=== PATIENT | female | born 1985 | race Caucasian/White ===

== ENCOUNTER 2017-04-06 08:46 | Emergency (ER) | payer BC, OTHER ==
[~2017-04-06] VITALS: Ht 170.2 cm; Wt 56.7 kg
[2017-04-06 08:48] VITALS: Ht 170.2 cm; Wt 56.7 kg
[2017-04-06] MEDS ORDERED: FAMOTIDINE 20 MG INJ IV STA (09:07)
[2017-04-06] MEDS ORDERED: SOD CHLORIDE 0.9% 1,000 ML IV STA (09:07)
[2017-04-06] MEDS ORDERED: ONDANSETRON 4 MG INJ IV STA (09:07)
[2017-04-06] MEDS ORDERED: morphine 4 MG/ML VIAL IV STA (09:07)
--- NOTE | 2017-04-06 09:16 | ERD ---
ER Documentation Chief Complaint Chief Complaint ABD PAIN, ONSET 1 DAY, HOSPITAL VISIT SEVERAL DAYS AGO FOR SAME S/S HPI This is a 31-year-old female who presents emergency department today complaining of on abdominal pain that started earlier today. Patient states that she has had pain in her stomach "her whole life and was told she has a malfunctioning got ". States that her GI specialist is Dr. Luna at [facility] and was told to be on a strict diet. States she has had an endoscopy and colonoscopy this past summer and nothing was found. States that was done when he took her gallbladder out. Denies any vomiting at this time but states that she has Unadilla at home and cannot take that because whenever she takes oral medication she throws up. States she was seen at a hospital 2 days ago at [facility] for the same problem. States that she is in this area visiting her mother. States that she occasionally smokes marijuana. Denies any dysuria, fevers or chills ROS All systems reviewed and are negative except as per history of present illness. Medications Home Meds Active Scripts Dicyclomine Hcl* (Bentyl*) 10 Mg Capsule, 10 MG PO QID, #30 CAP Prov:ROLO QUINTANILLA PA-C 04/06/17 Electrolyte,Oral (Pedialyte) 1,000 Ml Solution, 100 ML PO Q6 Y for VOMITTING, # 1000 ML Prov:ROLO QUINTANILLA PA-C 04/06/17 Ondansetron Hcl* (Zofran*) 4 Mg Tablet, 4 MG PO Q6H for NAUSEA AND/OR VOMITING, #30 TAB Prov:ROLO QUINTANILLA PA-C 04/06/17 Allergies Allergies: Coded Allergies: No Known Allergy (Unverified , 04/06/17) Physical Exam Vitals Vital Signs Date Time Temp Pulse Resp B/P Pulse Ox O2 Delivery O2 Flow Rate FiO2 04/06/17 13:05 99.1 86 18 136/64 98 Room Air 04/06/17 08:48 99.2 93 17 135/86 98 Physical Exam Const: NAD Head: Atraumatic Eyes: Normal Conjunctiva ENT: Normal External Ears, Nose and Mouth. Neck: Full range of motion..~ No meningismus. Resp: Clear to auscultation bilaterally Cardio: Regular rate and rhythm, no murmurs Abd: Soft,epigastric tenderness non distended. Normal bowel sounds. No lower abdominal pain Skin: No petechiae or rashes Back: No midline or flank tenderness Ext: No cyanosis, or edema Neur: Awake and alert Psych: Normal Mood and Affect Result Diagram: 04/06/17 0917 04/06/17 0917 Results 24 hrs Laboratory Tests Test 04/06/17 09:17 04/06/17 11:52 White Blood Count 7.110^3/ul Red Blood Count 4.5810^6/ul Hemoglobin 13.9g/dl Hematocrit 40.1% Mean Corpuscular Volume 87.6fl Mean Corpuscular Hemoglobin 30.3pg Mean Corpuscular Hemoglobin Concent 34.7g/dl Red Cell Distribution Width 12.0% Platelet Count 57332^3/UL Mean Platelet Volume 11.9fl Segmented Neutrophils % (Manual) 77% Band Neutrophils % (Manual) 3% Lymphocytes % (Manual) 13% Reactive Lymphocytes % (Manual) 4% Monocytes % (Manual) 2% Eosinophils % (Manual) 1% Nucleated Red Blood Cells % 0.0/100WBC Neutrophils # (Manual) 5.510^3/ul Band Neutrophils # 0.210^3/ul Absolute Lymphocytes (Manual) 0.910^3/ul Reactive Lymphocytes # 0.210^3/ul Absolute Monocytes (Manual) 0.110^3/ul Platelet Estimate NORMAL Polychromasia 2+ Anisocytosis 2+ Microcytosis 2+ Sodium Level 142mmol/L Potassium Level 3.5mmol/L Chloride Level 102mmol/L Carbon Dioxide Level 28mmol/L Anion Gap 16 Blood Urea Nitrogen 14mg/dl Creatinine 0.63mg/dl Glucose Level 97mg/dl Calcium Level 9.5mg/dl Total Bilirubin 0.9mg/dl Direct Bilirubin 0.00mg/dl Indirect Bilirubin 0.9mg/dl Aspartate Amino Transf (AST/SGOT) 26IU/L Alanine Aminotransferase (ALT/SGPT) 32IU/L Alkaline Phosphatase 69IU/L Total Protein 8.3g/dl Albumin 4.8g/dl Globulin 3.50g/dl Albumin/Globulin Ratio 1.37 Lipase 49U/L Serum HCG, Qualitative NEGATIVE Current Medications Medications (Trade) Dose Ordered Sig/Nnamdi Route PRN Reason Start Time Stop Time Status Last Admin Dose Admin Sodium Chloride (NS) 1,000 ml @ 1,000 mls/hr Q1H STAT IV 04/06/17 09:07 04/06/17 10:06 DC 04/06/17 09:16 Morphine Sulfate (morphine) 4 mg ONCE STAT IV 04/06/17 09:07 04/06/17 09:09 DC 04/06/17 09:16 Ondansetron HCl (Zofran Inj) 4 mg ONCE STAT IV 04/06/17 09:07 04/06/17 09:09 DC 04/06/17 09:16 Famotidine (Pepcid Iv) 20 mg ONCE STAT IV 04/06/17 09:07 04/06/17 09:09 DC 04/06/17 09:16 Lorazepam (Ativan) 1 mg ONCE ONCE IV 04/06/17 10:00 04/06/17 10:01 DC 04/06/17 09:41 Dicyclomine HCl (Bentyl) 10 mg ONCE ONCE IM 04/06/17 13:30 04/06/17 13:31 Procedures/MDM This is a 31-year-old female who presents the emergency department today with her with chronic abdominal pain for "her whole life". Patient has a GI specialist Dr. Luna at [facility]. This is the patient's first visit to this emergency department. Patient was requesting pain medication and her was requesting something to help her relax. On physical exam patient has epigastric tenderness. Her vital signs are stable. I did obtain laboratory workup. Patient has no lower abdominal pain and her pain appears to be chronic and I do not feel that she requires imaging at this time Laboratory workup no elevated white blood cell count. She is not anemic. Platelets are within normal limits. Electrolytes are within normal limits. Glucose is within normal limits. Lipase is within normal limits. UA and urine test were unable to be obtained as patient was not able to provide a urine sample despite being asked several times and given IV fluids Serum HcG is negative. Patient was given morphine, Zofran, IV fluid and Ativan. Pain and vomiting resolved. Discussed the patient with Dr. Saenz he does not feel she requires further workup or imaging at this time. Notified patient that I was unable to let her know if she had a urinary tract infection or not that could be causing some of her abdominal pain that she was not willing to provide a urine sample. Patient understood. Patient has chronic abdominal pain. Low suspicion for acute surgical abdomen. She has been instructed to follow-up with her GI specialist. Has a prescription for Unadilla at home she may take that. Number prescription for Zofran and Pedialyte. Also give her referral information for chronic pain management and psych referral. Patient also endorses smoking marijuana on occasion she was instructed to stop using it as it could be causing some of her abdominal pain. Proir to discharge patient indicated her pain was starting to return. It indicated she could take her home medication as prescribed. Dr. Buenrostro was called to the bedside and explained her policies regarding narcotics and repeat pain medications here in the emergency department. He did offer patient IM Bentyl which she accepted. She was also given a prescription for that for home. At this time the patient is stable for discharge and outpatient management. Patient should follow up with their PCP in the next 1-2 days. They may return to the emergency department sooner for any persistent or worsening of symptoms. Patient understood and agreed with the plan. Departure Diagnosis: Primary Impression: Abdominal pain Abdominal location: epigastric Qualified Code: R10.13 - Epigastric pain Condition: Fair ROLO QUINTANILLA PA-C Apr 06, 2017 09:16
[2017-04-06 09:41] LABS: HEMATOCRIT 40.1 % (37.0-47.0); HEMOGLOBIN 13.9 g/dl (12.0-16.0); MEAN CORPUSCULAR HEMOGLOBIN 30.3 pg (29.0-33.0); MEAN CORPUSCULAR HGB CONC 34.7 g/dl (32.0-37.0); MEAN CORPUSCULAR VOLUME 87.6 fl (82.0-101.0); MEAN PLATELET VOLUME 11.9 fl (7.4-10.4); PLATELET COUNT 164 10^3/UL (140-415); RED BLOOD COUNT 4.58 10^6/ul (4.20-5.40); WHITE BLOOD COUNT 7.1 10^3/ul (4.8-10.8)
[2017-04-06] MEDS ORDERED: LORAZEPAM 2 MG INJ IV ONE (10:00)
[2017-04-06 10:01] LABS: ALBUMIN 4.8 g/dl (3.3-4.9); ALBUMIN/GLOBULIN RATIO 1.37; BILIRUBIN,INDIRECT 0.9 mg/dl (0-1.1); BILIRUBIN,TOTAL 0.9 mg/dl (0.2-1.3); CALCIUM 9.5 mg/dl (8.4-10.2); CREATININE 0.63 mg/dl (0.44-1.00); POTASSIUM 3.5 mmol/L (3.5-5.1); TOTAL PROTEIN 8.3 g/dl (6.1-8.1)
[2017-04-06] MEDS ORDERED: ONDA4TAB8 PO (12:41)
[2017-04-06] MEDS ORDERED: ELEC100080 PO (12:42)
[2017-04-06 12:50] LABS: ANISOCYTOSIS 2+ (0-0); EOSINOPHILS % (M) 1 % (0-7); MICROCYTOSIS 2+ (0-0); MONOCYTES % (M) 2 % (0-11); PLATELET ESTIMATE NORMAL; POLYCHROMASIA 2+ (0-0); REACTIVE LYMPHOCYTES% (M) 4 % (0-0)
[2017-04-06 13:05] VITALS: BP 136/64; PULSE 86; RESP 18; TEMP 99.1
[2017-04-06] MEDS ORDERED: DICY10CA60 PO (13:30)
[2017-04-06] MEDS ORDERED: DICYCLOMINE 20 MG INJ IM ONE (13:30)
== END 2017-04-06 13:40 | disposition home or self-care (01) ==
LOC: FTE 08:46
DX: R10.13 Epigastric pain (principal)
CPT/HCPCS: 36415; 80053; 83690; 84703; 85025; 96374; 96375; 99284; J2060; J2270; J2405; J7030; J0500